=== PATIENT | male | born 1960 | race American Indian/Alaskan Native ===

== ENCOUNTER 2016-10-16 14:53 | Emergency (ER) | payer OTHER ==
[2016-10-16 15:06] VITALS: BMI 27.1
[2016-10-16 15:07] VITALS: TEMP 98.4
--- NOTE | 2016-10-16 15:37 | C.PDOC ---
"History Of Present Illness 56 y/o male presents to ED with c/o weakness to left leg. Patient reports he occasionally feels his leg give out and buckle on him when walking. Patient also reports numbness sensation down to his foot. Denies injuries, fever, or abdominal pain. Patient seen in July of this year for lower back pain, treated with anti-inflammatory medications and muscle relaxants, and patient reports pain has since resolved. Denies back pain, bowel or urinary changes, trauma, or any other associated symptoms. Time Seen by Provider: 10/16/16 15:24 Chief Complaint (Nursing): Weakness/Neurological Deficit History Per: Patient History/Exam Limitations: no limitations Onset/Duration Of Symptoms: Days Current Symptoms Are (Timing): Still Present Recent travel outside of the [place]: No Past Medical History Reviewed: Historical Data, Nursing Documentation, Vital Signs Vital Signs: Last Vital Signs Temp 98.4 F 10/16/16 15:07 Pulse 84 10/16/16 15:07 Resp 18 10/16/16 15:07 BP 129/74 10/16/16 15:07 Pulse Ox 98 10/16/16 18:45 - Medical History PMH: Bronchitis, Diabetes, HTN, Hypercholesterolemia Denies: Chronic Kidney Disease Family History: States: Unknown Family Hx - Social History Hx Alcohol Use: Yes Hx Substance Use: No - Immunization History Hx Tetanus Toxoid Vaccination: No Hx Influenza Vaccination: Yes Hx Pneumococcal Vaccination: No Review Of Systems Except As Marked, All Systems Reviewed And Found Negative. Constitutional: Negative for: Fever, Chills Cardiovascular: Negative for: Chest Pain Respiratory: Negative for: Shortness of Breath Gastrointestinal: Negative for: Nausea, Vomiting Musculoskeletal: Negative for: Back Pain Skin: Negative for: Rash Neurological: Positive for: Weakness (LLE), Numbness. Negative for: Headache Physical Exam - Physical Exam Appears: Non-toxic, No Acute Distress Skin: Normal Color, Warm, Dry Head: Atraumatic, Normacephalic Oral Mucosa: Moist Neck: No Midline Cervical Tenderness, No Paracervical Tenderness, Supple Chest: Symmetrical Cardiovascular: Rhythm Regular Respiratory: Normal Breath Sounds, No Rales, No Rhonchi, No Wheezing Gastrointestinal/Abdominal: Soft, No Tenderness, No Guarding, No Rebound Back: Normal Inspection, No Vertebral Tenderness, No Paraspinal Tenderness Extremity: Normal ROM, No Tenderness, Capillary Refill (< 2 sec.), No Deformity , Other (atrophy left quadriceps, able to walk heel to toe, normal dorsiflexion , normal sensation, normal reflexes) Extremity: Bilateral: Normal Color And Temperature Pulses: Left Dorsalis Pedis: Normal, Right Dorsalis Pedis: Normal Neurological/Psych: Oriented x3, Normal Speech, Normal Cognition, Normal Motor, Normal Sensation, Normal Reflexes ED Course And Treatment O2 Sat by Pulse Oximetry: 98 (RA) Pulse Ox Interpretation: Normal - Other Rad MRI X-Ray: Viewed By Me, Read By Radiologist Interpretation: [facility]. [facility]. Preliminary Radiology Report Call: [phone]. assistance Online chat: [email or web address] Name: IDALIA FERREIRA Age: 56Years M Date: 10/16/2016. Requesting Physician: Doris Posada : 1960. [facility] Procedure Ordered As Accession Number of. Images. MR SPINE LUMBAR. WO. MRI SPINAL CANAL LUMBAR W O. CONT. [id number]. J. 182. Provided Clinical History: weakness left leg. Page 1 of 2. EXAM: MR Lumbar Spine Without Intravenous Contrast. CLINICAL HISTORY: 56 years old, male; Pain; Sciatica; Left; Additional info: Weakness left leg. TECHNIQUE: Magnetic resonance images of the lumbar spine without intravenous contrast in multiple planes. COMPARISON: No relevant prior studies available. FINDINGS: Vertebrae: Unremarkable. No acute fracture. Interspaces: There is disc space narrowing and disc desiccation. Spinal cord: Unremarkable. Normal signal. Soft tissues: Unremarkable. DISCS/SPINAL CANAL/NEURAL FORAMINA: L1-L2: At L1-2, there is no significant abnormality No stenosis. L2-L3: At L2-3, there is no significant abnormality. No stenosis. L3-L4: L3-4, there is a mild concentric disc bulge, ligamentous prominence, facet osteoarthropathy. and mild stenosis. L4-L5: At L4-5, there is a broad-based central to right-sided disc protrusion causing mild. impingement on dural sac and right L5 nerve root. Prominent ligamentous structures. Mild to. moderate facet osteoarthropathy. Mild stenosis. L5-S1: At L5-S1: There is a concentric disc bulge. Facet osteoarthropathy. No significant stenosis. IMPRESSION: 1. L3-4, there is a mild concentric disc bulge, ligamentous prominence, facet osteoarthropathy and. mild stenosis. IDALIA FERREIRA | Preliminary Radiology Report. PILE DRIVER (QA) DISCREPANCY? If there is a discrepancy between the preliminary and final interpretation, please notify [facility] via [email or web address]. If you do not have access to our QA portal, call our QA team at [phone]. CONFIDENTIALITY STATEMENT. This report is intended only for the use of the referring physician, and only in accordance with law, If you received this in error, call [phone]. Page 2 of 2. 2. At L4-5, there is a broad-based central to right-sided disc protrusion causing mild impingement on. dural sac and right L5 nerve root. Prominent ligamentous structures. Mild to moderate facet. osteoarthropathy. Mild stenosis. Thank you for allowing us to participate in the care of your patient. Dictated and Authenticated by: Jake Luther MD. 10/16/2016 6:09 PM Eastern Time ([place] & [place]) Progress Note: MRI of the back ordered. Reevaluation Time: 18:40 Reassessment Condition: Unchanged (Patient stable.) Disposition Counseled Patient/Family Regarding: Studies Performed, Diagnosis, Need For Followup, Rx Given - Disposition Referrals: Rosmery Mares MD [Staff Provider] - Disposition: HOME/ ROUTINE Disposition Time: 18:41 Condition: STABLE Prescriptions: Acetaminophen with Codeine [Tylenol with Codeine #3 Tablet] 1 each PO Q4 PRN # 20 tablet PRN Reason: Pain, Severe (8-10) Instructions: Leg Pain (ED) Forms: Work Excuse - Clinical Impression Clinical Impression: Leg pain, left - Scribe Statement The provider has reviewed the documentation as recorded by the Teofilo Mares Provider Attestation: All medical record entries made by the Teofilo were at my direction and personally dictated by me. I have reviewed the chart and agree that the record accurately reflects my personal performance of the history, physical exam, medical decision making, and the department course for this patient. I have also personally directed, reviewed, and agree with the discharge instructions and disposition."
--- NOTE | 2016-10-16 18:45 | MRI ---
PROCEDURE: MRI of the lumbar spine dated 10/16/2016. HISTORY: Left leg weakness. COMPARISON: Comparison made with prior CT scan of the abdomen and pelvis dated the 12/24/2015. TECHNIQUE: Multi echo multiplanar sequences were performed through the lumbar spine without the use of intravenous contrast. FINDINGS: The the current study reveals no acute compression fractures no retropulsed fragments. The vertebral bodies exhibit normal stature. Vertebral bodies and facets normally aligned. At the L4-L5 level, there is mild disc desiccation and disc space narrowing more so along the posterior disc margin. A moderate-sized focal central and right parasagittal focal disc bulge which compresses the ventral surface of the thecal sac centrally and to the right more so than left. There is slight posterior displacement of the right intrathecal and just exited it extra thecal L5 nerve root. There also appears to be mild posterior displacement of the right-sided S1 nerve root. . Facet joints are hypertrophic right greater than left. The overall central canal does appear adequate despite these changes. Proximal exit foramina are narrowed bilaterally. At the L5-S1 level, there is adequate disc height and hydration. . . Minor of broad-based bulging of the posterior annulus is present which reaches but does not significant compress the ventral surfaces of descending S1 nerve roots. Facets are hypertrophic. Proximal exit foramina are marginal to adequate. At the L3-L4 level, there is relatively adequate disc height and hydration. Note disc herniation nor significant disc bulge. The facet joints are mildly hypertrophic. Central canal appears adequate. Proximal exit foramina are mildly narrowed. At the L2-L3 level, there is adequate disc height and hydration. No disc herniation or significant disc bulge. Facet joints slightly hypertrophic. Central canal and exit foramina are adequate. Impression: No evidence of acute compression fracture.. Degenerative spondylosis on most notably affecting the L4-L5 level where there is a focal central and right parasagittal focal moderate-sized disc bulge which does result in compressive effects on the thecal sac and at nerve roots of the cauda equina as detailed above
[2016-10-16 19:10] VITALS: BP 131/76; PULSE 77; RESP 14; O2SAT 99
== END 2016-10-16 19:09 | disposition home or self-care (01) ==
LOC: C.ER 14:53
DX: M79.605 Pain in left leg (principal)

== ENCOUNTER 2017-02-11 17:54 | Emergency (ER) | payer OTHER ==
[2017-02-11 18:17] VITALS: BMI 27.4
[2017-02-11 18:20] VITALS: RESP 18; TEMP 98.9; O2SAT 98
--- NOTE | 2017-02-11 19:48 | C.PDOC ---
History Of Present Illness 56 y/o male with Hx of DM and HTN presents to ED with complaints of dental pain with mild swelling. Patient also complaints of itchiness to both ears for 1 month. Patient denies fever, chills or any other complaints at this time. Time Seen by Provider: 02/11/17 19:06 Chief Complaint (Nursing): Dental Pain History Per: Patient History/Exam Limitations: no limitations Onset/Duration Of Symptoms: Days Current Symptoms Are (Timing): Still Present Past Medical History Reviewed: Historical Data, Nursing Documentation, Vital Signs Vital Signs: Last Vital Signs Temp 98.9 F 02/11/17 18:17 Pulse 75 02/11/17 20:47 Resp 18 02/11/17 20:47 BP 128/75 02/11/17 20:47 Pulse Ox 98 02/15/17 06:29 - Medical History PMH: Bronchitis, Diabetes, HTN, Hypercholesterolemia Surgical History: No Surg Hx Family History: States: No Known Family Hx - Social History Hx Alcohol Use: Yes Hx Substance Use: No - Immunization History Hx Tetanus Toxoid Vaccination: No Hx Influenza Vaccination: Yes Hx Pneumococcal Vaccination: No Review Of Systems Constitutional: Negative for: Fever, Chills ENT: Positive for: Mouth Pain (Dental) Cardiovascular: Negative for: Chest Pain Respiratory: Negative for: Cough Skin: Negative for: Rash Neurological: Negative for: Headache Physical Exam - Physical Exam Additional Physical Exam Comments: Constitutional: No acute distress. WDWN. Head: Normocephalic. Atraumatic. Eyes: PERRL. EOMI. Ears: Bilat TM normal. Mild erythema to bilateral canals secondary to excessive scratching ENT: Moist mucous membranes. Gingiva: Poor dentition, missing and broken teeth, poor state of hygiene, right lower jaw w/molar tender to palpation and swelling to gums and adjacent cheek. No fluctuance Neck: Supple. Cardiovascular: Regular rate and rhythm. Chest: No tenderness. Respiratory: Clear to auscultation bilaterally. GI: Soft. Nontender. Nondistended. Normoactive bowel sounds. No rebound. No guarding. Back: No CVA and no mid-line tenderness. Musculoskeletal: No tenderness or swelling of extremities. Skin: No rash. Neurologic: Alert, no focal deficit. ED Course And Treatment O2 Sat by Pulse Oximetry: 98 (RA) Pulse Ox Interpretation: Normal Medical Decision Making Medical Decision Making: pt with dm, htn, c/o dental pain righ tlower with mild facial swelling. will d/ c wiht augmenting and tylenol #3, dental f/u tomorrow. also pt c/o itching in ears bilaterally for one month, will d/c with claritin and ent f/u Disposition Counseled Patient/Family Regarding: Diagnosis, Need For Followup, Rx Given - Disposition Referrals: [facility] [Outside] Hayes Sanches MD [Staff Provider] - Rosmery Mares MD [Staff Provider] - Disposition: HOME/ ROUTINE Disposition Time: 20:37 Condition: STABLE Additional Instructions: Please follow up with a dentist tomorrow, Take antibiotics as prescribed. Take Tylneol with codeine for severe pain, Take ibuprofen as prescribed. Also follow up with ENT doctor Myron for your itchy ears and take Loratidine. And Follow up in Medical clinic or with Dr Mares, in next 1-2 days. Prescriptions: Amoxicillin/Clavulanate [Augmentin 875 MG-125 MG] 1 tab PO BID #20 tab Ibuprofen [Motrin] 600 mg PO TID #30 tab Loratadine 10 mg PO DAILY #14 tablet Forms: General Discharge Instructions, [facility] (Hungarian), Work Excuse - Clinical Impression Clinical Impression: Dental abscess, Ear itching - PA / RESIN PAINTER / Resident Statement MD/DO has reviewed & agrees with the documentation as recorded. - Scribe Statement The provider has reviewed the documentation as recorded by the Teofilo Singh All medical record entries made by the Henrryibjacy were at my direction and personally dictated by me. I have reviewed the chart and agree that the record accurately reflects my personal performance of the history, physical exam, medical decision making, and the department course for this patient. I have also personally directed, reviewed, and agree with the discharge instructions and disposition.
[2017-02-11] MEDS ORDERED: Acetaminophen-Codeine 300/30 mg Tab PO ONE (19:58)
[2017-02-11] MEDS ORDERED: Acetaminophen-Codeine 300/30 mg Tab PO STA (20:01)
[2017-02-11] MEDS ORDERED: Amoxicillin-Clav 875-125 mg Tab PO STA (20:07)
[2017-02-11] MEDS ORDERED: Amoxicillin-Clav 875-125 mg Tab PO ONE (20:11)
[2017-02-11 20:49] VITALS: BP 128/75; PULSE 75
== END 2017-02-11 20:48 | disposition home or self-care (01) ==
LOC: C.ER 17:54
DX: K04.7 Periapical abscess without sinus (principal); L29.9 Pruritus, unspecified

== ENCOUNTER 2017-07-09 13:11 | Emergency (ER) | payer OTHER ==
[2017-07-09 13:11] VITALS: BMI 27.4
[2017-07-09 14:08] VITALS: PULSE 80; O2SAT 98
--- NOTE | 2017-07-09 14:35 | C.PDOC ---
History Of Present Illness 57 y/o male presents to the ER complaining of left lower back pain since yesterday. States yesterday he was wrapping a palette when he noticed the onset of pain. Reports he does engage in heavy lifting at work and wears a support belt. Has had similar episodes of this pain in the past. No change in symptoms from prior. Patient had an MRI a few months ago, revealing herniated discs. No new trauma or injury. Denies any associated abdominal pain, changes in sensation , weakness, urinary or bowel incontinence. PMD: Rosmery Mares Time Seen by Provider: 07/09/17 14:31 Chief Complaint (Nursing): Back Pain History Per: Patient History/Exam Limitations: no limitations Onset/Duration Of Symptoms: Days (x2) Current Symptoms Are (Timing): Still Present Previous Symptoms: Back Pain Past Medical History Reviewed: Historical Data, Nursing Documentation, Vital Signs Vital Signs: Last Vital Signs Temp 98.2 F 07/09/17 15:42 Pulse 80 07/09/17 15:42 Resp 20 07/09/17 15:42 BP 151/97 H 07/09/17 15:59 Pulse Ox 98 07/09/17 15:42 - Medical History PMH: Back Problems (herniated disc), Bronchitis, Diabetes, HTN, Hypercholesterolemia Denies: Chronic Kidney Disease Family History: States: Unknown Family Hx - Social History Hx Alcohol Use: Yes Hx Substance Use: No - Immunization History Hx Tetanus Toxoid Vaccination: No Hx Influenza Vaccination: Yes Hx Pneumococcal Vaccination: No Review Of Systems Except As Marked, All Systems Reviewed And Found Negative. Gastrointestinal: Negative for: Abdominal Pain Genitourinary: Negative for: Incontinence Musculoskeletal: Positive for: Back Pain Neurological: Negative for: Weakness, Numbness, Other (tingling) Physical Exam - Physical Exam Appears: Non-toxic, No Acute Distress Skin: Warm, Dry Head: Atraumatic, Normacephalic Eye(s): bilateral: Normal Inspection, EOMI Nose: Normal Oral Mucosa: Moist Neck: Normal ROM, Supple Chest: Symmetrical Cardiovascular: Rhythm Regular Respiratory: No Accessory Muscle Use, Other (speaking full sentences) Gastrointestinal/Abdominal: Soft, No Tenderness Back: No CVA Tenderness, No Vertebral Tenderness, Paraspinal Tenderness (left paralumbar region) Extremity: Normal ROM Extremity: Bilateral: Atraumatic, Normal Color And Temperature, Normal ROM Neurological/Psych: Oriented x3, Normal Speech, Normal Motor, Normal Sensation, No Other (focal deficits) Gait: Steady ED Course And Treatment O2 Sat by Pulse Oximetry: 98 (RA) Pulse Ox Interpretation: Normal Progress Note: Given 10 mg Flexeril PO and 30 mg IM Toradol. Lidoderm patch applied. On reassessment, patient is resting comfortably, with improvement of back pain. Patient remains afebrile, with no bony tenderness, extremity numbness or weakness, or abdominal pain. Patient is ambulatory in the emergency department with no signs of discomfort. Patient was advised to follow up with physician/clinic in 1-2 days. Disposition - Disposition Disposition: HOME/ ROUTINE Disposition Time: 15:23 Condition: STABLE Additional Instructions: Follow up with your primary medical doctor or clinic in 2-5 days for further evaluation. Take medications as prescribed. Return to the emergency department at any time if symptoms persist or worsen. Prescriptions: Cyclobenzaprine [Cyclobenzaprine HCl] 10 mg PO TID #20 tab Naproxen [Naprosyn] 1 tab PO BID PRN #20 tab PRN Reason: Pain Instructions: Low Back Pain (DC) Forms: [employer] (Portuguese) - Clinical Impression Clinical Impression: Low back pain - PA / WEB ART DIRECTOR / Resident Statement MD/DO has reviewed & agrees with the documentation as recorded. - Scribe Statement The provider has reviewed the documentation as recorded by the Scribe (Cindi Nelson) All medical record entries made by the Scribe were at my direction and personally dictated by me. I have reviewed the chart and agree that the record accurately reflects my personal performance of the history, physical exam, medical decision making, and the department course for this patient. I have also personally directed, reviewed, and agree with the discharge instructions and disposition.
[2017-07-09] MEDS ORDERED: Lidocaine 5% Patch TD STA (14:46)
[2017-07-09] MEDS ORDERED: Lidocaine 5% Patch TD ONE (14:58)
[2017-07-09 15:43] VITALS: RESP 20; TEMP 98.2
[2017-07-09 16:00] VITALS: BP 151/97
== END 2017-07-09 16:09 | disposition home or self-care (01) ==
LOC: C.ER 13:11
DX: M54.5 Low back pain (principal)
CPT/HCPCS: 96372; 99284; J1885

== ENCOUNTER 2017-10-28 12:42 | Emergency (ER) | payer OTHER ==
[2017-10-28 12:42] VITALS: BMI 27.4
[2017-10-28 12:51] VITALS: TEMP 98.5; O2SAT 98
--- NOTE | 2017-10-28 14:00 | RAD ---
PROCEDURE: Radiographs of the Lumbar Spine. HISTORY: intermittent leg weakness causing falls COMPARISON: No prior. FINDINGS: BONES: No compression fractures no retropulsed fragments. Mild chronic anterior stature loss of the T11 segment. Remaining vertebral bodies otherwise exhibit relatively normal stature of. Vertebral bodies and facets normally aligned. DISC SPACES: Minor multilevel degenerative spondylosis. Minor posterior disc space narrowing seen at several levels. Small marginal anterolateral osteophytes are seen at several levels. OTHER FINDINGS: None. IMPRESSION: No acute fractures. Minor degenerative spondylosis.
--- NOTE | 2017-10-28 14:11 | C.PDOC ---
History Of Present Illness 57 y/o M p/w intermittent leg weakness that causes him to fall. Denies any injury from falls. Patient states he went to Dr. Mares in office on 10/13/17 for same and was instructed to obtain an XR LS spine for further evaluation at [facility] so he came here. He denies that he is having any acute emergency and does not wish to be evaluated as inpatient or thinks he requires short term rehab at this time. Denies urinary or bowel incontinence or retention , numbness, weakness, fever. Time Seen by Provider: 10/28/17 13:04 Chief Complaint (Nursing): Lower Extremity Problem/Injury Past Medical History Vital Signs: Last Vital Signs Temp 98.5 F 10/28/17 12:44 Pulse 82 10/28/17 14:31 Resp 16 10/28/17 14:31 BP 136/85 10/28/17 14:31 Pulse Ox 98 10/28/17 14:31 - Medical History PMH: Back Problems (herniated disc), Bronchitis, Diabetes, HTN, Hypercholesterolemia Denies: Chronic Kidney Disease Family History: States: Unknown Family Hx - Social History Hx Alcohol Use: Yes Hx Substance Use: No - Immunization History Hx Tetanus Toxoid Vaccination: No Hx Influenza Vaccination: Yes Hx Pneumococcal Vaccination: No Review Of Systems Except As Marked, All Systems Reviewed And Found Negative. Constitutional: Negative for: Fever Respiratory: Negative for: Shortness of Breath Physical Exam - Physical Exam Additional Physical Exam Comments: Gen: NAD Head: NC/AT Eyes: PERRL ENT: MMM Neck: Supple Chest: No tenderness CV: Regular rate Lungs: CTA b/l Abd: Soft, NT Back: No midline tenderness Skin: No rash Extremities: No swelling of extremities. No tenderness. Neuro: Alert, no focal deficit. Normal gait. ED Course And Treatment O2 Sat by Pulse Oximetry: 98 Medical Decision Making Medical Decision Making: XR shows degnerative changes. Spondylosis. Osteophytes. No fracture. Copy of XR and report given to patient to bring to Dr. Mares upon follow up. Disposition - Disposition Referrals: Rosmery Mares MD [Staff Provider] - Disposition: HOME/ ROUTINE Disposition Time: 14:09 Condition: STABLE Instructions: Degenerative Disc Disease (DC) Forms: [employer] (French) - Clinical Impression Clinical Impression: Leg weakness
[2017-10-28 14:32] VITALS: BP 136/85; PULSE 82; RESP 16
== END 2017-10-28 14:31 | disposition home or self-care (01) ==
LOC: C.ER 12:42
DX: R53.1 Weakness (principal); E11.9 Type 2 diabetes mellitus without complications; E78.00 Pure hypercholesterolemia, unspecified; I10 Essential (primary) hypertension